=== PATIENT | female | born 2000 | race Caucasian/White ===

== ENCOUNTER 2021-10-01 09:17 | Observation (INO) | payer BC, SELFPAY ==
[2021-09-30 20:10] VITALS: PULSE 147; RESP 18; O2SAT 100
--- NOTE | 2021-09-30 20:10 | PC.NURSE ---
This patient, Tiffany Nicole, was admitted to Intensive Care Unit-8. Patient/family oriented to hospital policies and general routines including ID bracelet, bed and alarms, visiting hours, pain management, procedures, bathroom and other care routines, personal items, smoking policy, room service/diet, and visiting hours. Information on how to activate the Rapid Response Team has been discussed. Patient/Family are encouraged to report perceived risks to care and to ask questions if they do not understand what they are told or what they should do.
[2021-09-30 20:16] VITALS: BMI 22.6
--- NOTE | 2021-09-30 20:21 | ECG_ITS ---
Measurements Intervals [place] Rate: 143 P: 58 MO: 96 QRS: 77 QRSD: 94 T: -42 QT: 232 QTc: 359 Interpretive Statements NARROW QRS TACHYCARDIA MOST CONSISTENT WITH ATYPICAL ATRIAL FLUTTER NONSPECIFIC ST & T-WAVE ABNORMALITY WARNING: DATA QUALITY MAY AFFECT INTERPRETATION NO PREVIOUS ECG AVAILABLE FOR COMPARISON Electronically Signed On 10-01-2021 16:41:39 CDT by Maury Greer M.D.
[2021-09-30 20:41] LABS: Hematocrit 39.9 % (37.0-47.0); Hemoglobin 13.5 g/dL (12.0-15.0); Mean Corpuscular HGB Conc 33.8 g/dl (32-36); Mean Corpuscular Hemoglobin 29.5 pg (26-34); Mean Corpuscular Volume 87.1 fl (80-100); Mean Platelet Volume 10.7 fl (7.4-10.4); Platelet Count Result 266 k/mm3 (150-375); Red Blood Count 4.58 M/mm3 (4.2-5.4); Red Cell Distribution Width 14.1 % (11.5-14.5); White Blood Count 8.2 K/mm3 (4.5-10.0)
[2021-09-30 20:51] LABS: Alanine Aminotransferase 19 U/L (6-35); Albumin Level 5.1 g/dL (3.5-5.1); Alkaline Phosphatase 61 U/L (38-126); Anion Gap 14 mmol/L (8-16); Aspartate Amino Transferase 25 U/L (14-36); Bilirubin,Total 0.5 mg/dL (0.2-1.3); Blood Urea Nitrogen 8 mg/dL (7-17); Calcium 9.1 mg/dL (8.4-10.2); Carbon Dioxide 18 mmol/L (22-30); Chloride 111 mmol/L (98-107); Estimated CRCL calculation 121 ml/min; Estimated Glomerular Filt Rate > 60; Glucose 120 mg/dL (65-110); Magnesium 1.8 mg/dL (1.6-2.3); Potassium 3.5 mmol/L (3.4-5.0); Sodium 143 mmol/L (137-145)
[2021-09-30 20:53] LABS: Acetaminophen < 10 ug/mL (10-30); Salicylate < 1.0 mg/dL (2-20)
[2021-09-30 21:20] LABS: Band Neutrophils Percent 2 % (0-6); Lymphocytes Absolute Manual 0.65 K/mm3 (1.1-4.5); Monocytes Absolute Manual 0.08 K/mm3 (0.1-0.90); Monocytes Percent Manual 1 % (3-9); Neutrophils Absolute Manual 7.46 K/mm3 (1.7-7.2); Neutrophils Percent Manual 89 % (46-73); Platelet Estimate Adequate (Adequate); Total Cells Counted 100
--- NOTE | 2021-09-30 21:30 | PM.IMHP ---
H&P: HPI History of Present Illness Date/Time: 09/30/21 21:30 Chief Complaint: Intentional venlafaxine overdose. Narrative: This is a very pleasant 21-year-old female with depression who is being directly admitted to the ICU from an outside emergency department for close monitoring after an intentional venlafaxine overdose. She has a history of depression dating back to her teenage years and was previously hospitalized after attempting suicide by overdose approximately 7 years ago. Since that time she has been off and on antidepressants and over the last several months she has been trying to wean off of venlafaxine as she seemed to be doing better. Last month she had Nexplanon implanted and since that time she has become increasingly depressed with frequent crying spells. This morning she drank 2 bottles of wine starting at about 04:00 and around 11:00 she took 90 tablets of Effexor ER 75 mg. Not long thereafter she was remorseful and induced emesis however only vomited a small amount and she was brought into the ER for evaluation. In the emergency department she was tachycardic and her EKG showed a slightly prolonged QTC at 463. Poison Control was consulted and they recommended transfer to an ICU for close monitoring. Her potassium was on the low end of normal and they also recommended that be replaced to a goal potassium level of near 4.0. There were no recommendations for sodium bicarbonate. While in the emergency department she had intermittent episodes of scattered red patches, some slightly raised, on the face, neck, and trunk. She was given a dose of Solu-Medrol for possible allergic reaction though patient notes that this occasionally happens with emotions and they seem to come and go quite quickly. At the time my evaluation she is resting comfortably. She remains tachycardic in the 130s but reports that her palpitations have improved. She is not experiencing any nausea and in fact she is a bit hungry. She denies dizziness, tremors, headache, visual changes, abdominal pain, chest pain, wheezing, and shortness of breath. She is not actively suicidal and tells me that she never really felt like she wanted to , more over she feels as though sometime she would be better off if she was not around. She has no harmful thoughts at this time. Review of Systems Review of Systems: Twelve systems were reviewed. No recent cold or flu symptoms. Last menstrual period was in the middle of August however she has had pretty continuous spotting since Nexplanon was implanted. Except as documented, all other systems were reviewed and are negative. [facility] Past Medical History Medical History (Updated 10/01/21 @ 11:27 by Dm Fuentes MD) Anxiety Depression History of suicide attempt Surgical History Surgical History No history of previous surgery Family History Family History Other No pertinent family history Social History Social History (Updated 10/01/21 @ 11:37 by Dm Fuentes MD) Social History: Surrogate decision maker: Dinora Nicole, mother. Code status: Full code. 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 Spiritual care concerns: No Meds Home Medications and Allergies Home Medications Medication Instructions Recorded Confirmed Type No Home Medications 09/30/21 09/30/21 History Allergies Allergy/AdvReac Type Severity Reaction Status Date / Time Quinolones Allergy Anaphylaxis Verified 09/30/21 20:10 Exam Narrative: General: Well-developed female supine in bed. Weight: 65.6 kg. BMI: 22.7. HEENT:
[2021-09-30 21:39] VITALS: BP 125/74; PULSE 151; RESP 22; TEMP 37.7; O2SAT 100
[2021-09-30 22:00] VITALS: BP 126/75; PULSE 148; RESP 12; O2SAT 100
[2021-09-30] MEDS: POTASSIUM CHLORIDE 20 MEQ TABLET PO (22:47)
[2021-09-30] MEDS: LACTATED RINGERS 1,000 ML 100 ML IV CONT (22:49)
[2021-09-30 23:08] LABS: Amphetamine Screen Urine Negative (Negative); Barbiturate Screen Urine Negative (Negative); Benzodiazepines Screen Urine Negative (Negative); Cannabinoid Screen Urine Negative (Negative); Cocaine Screen Urine Negative (Negative); Methadone Screen Urine Negative (Negative); Opiate Screen Urine Negative (Negative); Phencyclidine Screen Urine Negative (Negative)
--- NOTE | 2021-09-30 23:17 | PC.NURSE ---
Received call from [place] at poison control. Updated on pertinent labs, ekg results, vitals and patient mental status. Recommends giving 1g magnesium and repeat bmp & ekg at 0100. Will call around 0300 for patient update. Updated Maryjane SCHAEFFER with plan of care and recommendations.
[2021-10-01] VITALS (12 sets, daily range): BP systolic 107–137; BP diastolic 64–94; PULSE 87–149; RESP 14–27; TEMP 36.3–37.1; O2SAT 99–100
[2021-10-01] MEDS: MAGNESIUM SULF 1 GM/D5W 100 ML 1 GM/100 ML BAG IVPB (00:39)
--- NOTE | 2021-10-01 01:00 | ECG_ITS ---
Measurements Intervals [place] Rate: 144 P: 64 [place]: 104 QRS: 68 QRSD: 85 T: -39 QT: 229 QTc: 355 Interpretive Statements NARROW QRS TACHYCARDIA MOST CONSISTENT WITH ATYPICAL ATRIAL FLUTTER. NONSPECIFIC ST & T-WAVE ABNORMALITY COMPARED TO ECG 09/30/2021 20:00:15 NO SIGNIFICANT CHANGES Electronically Signed On 10-01-2021 16:44:07 CDT by Maury Greer M.D.
[2021-10-01 01:50] LABS: Anion Gap 14 mmol/L (8-16); Blood Urea Nitrogen 9 mg/dL (7-17); Calcium 8.8 mg/dL (8.4-10.2); Carbon Dioxide 18 mmol/L (22-30); Chloride 109 mmol/L (98-107); Estimated CRCL calculation 142 ml/min; Estimated Glomerular Filt Rate > 60; Glucose 129 mg/dL (65-110); Magnesium 2.1 mg/dL (1.6-2.3); Potassium 3.9 mmol/L (3.4-5.0); Sodium 141 mmol/L (137-145)
--- NOTE | 2021-10-01 03:16 | PC.NURSE ---
Follow up call received from Madison at poison control. Updated on current labs, vitals, most recent EKG, and patient current mental status. Recommendation is to continue IV fluid hydration and to give low dose of benzodiazepine. This RN will place call to hospitalist service with recommendations from poison control.
[2021-10-01 05:33] LABS: Hematocrit 37.6 % (37.0-47.0); Hemoglobin 12.6 g/dL (12.0-15.0); Mean Corpuscular HGB Conc 33.5 g/dl (32-36); Mean Corpuscular Hemoglobin 29.3 pg (26-34); Mean Corpuscular Volume 87.4 fl (80-100); Mean Platelet Volume 10.5 fl (7.4-10.4); Platelet Count Result 278 k/mm3 (150-375); Red Cell Distribution Width 14.3 % (11.5-14.5); White Blood Count 10.2 K/mm3 (4.5-10.0)
[2021-10-01 05:42] LABS: Alanine Aminotransferase 14 U/L (6-35); Albumin Level 4.7 g/dL (3.5-5.1); Alkaline Phosphatase 54 U/L (38-126); Anion Gap 12 mmol/L (8-16); Aspartate Amino Transferase 23 U/L (14-36); Bilirubin,Total 0.6 mg/dL (0.2-1.3); Blood Urea Nitrogen 8 mg/dL (7-17); Calcium 8.9 mg/dL (8.4-10.2); Carbon Dioxide 17 mmol/L (22-30); Chloride 109 mmol/L (98-107); Estimated CRCL calculation 142 ml/min; Estimated Glomerular Filt Rate > 60; Glucose 123 mg/dL (65-110); Magnesium 2.2 mg/dL (1.6-2.3); Potassium 3.9 mmol/L (3.4-5.0); Sodium 138 mmol/L (137-145)
--- NOTE | 2021-10-01 08:00 | ECG_ITS ---
Measurements Intervals [place] Rate: 134 P: 57 [place]: 96 QRS: 68 QRSD: 85 T: 0 QT: 331 QTc: 495 Interpretive Statements SINUS TACHYCARDIA WITH SHORT [place] INTERVAL NONSPECIFIC ST & T-WAVE ABNORMALITY ABNORMAL RHYTHM ECG COMPARED TO ECG 10/01/2021 00:40:16 SINUS RHYTHM IS NOW CLEARLY PRESENT. Electronically Signed On 10-01-2021 16:45:28 CDT by Maury Greer M.D.
[2021-10-01] MEDS: POTASSIUM CHLORIDE 20 MEQ PACKET (FOR LIQUID) PO (09:55)
[2021-10-01] MEDS: LACTATED RINGERS 1,000 ML 100 ML IV CONT ×2 (09:56→22:03)
[2021-10-01] MEDS: THIAMINE HCL 100 MG TABLET PO (11:19)
[2021-10-01] MEDS: FOLIC ACID 1 MG TABLET PO (11:19)
--- NOTE | 2021-10-01 11:22 | WPDCNINT ---
Assessment and Plan Assessment and plan (1) Overdose of venlafaxine: Code(s): T43.211A - Poisoning by selective serotonin and norepinephrine reuptake inhibitors, accidental (unintentional), initial encounter Status: Acute Assessment and Plan: Clinically patient has been stable and is currently asymptomatic EKG does show slightly prolonged QTC at 495 and will be monitored by serial EKGs She is alert oriented x3 and mostly symptomatic Continue to monitor neurological status and for seizures Potassium replacement ordered Monitor and replace electrolytes as needed (2) Serotonin syndrome: Code(s): G25.79 - Other drug induced movement disorders Status: Acute Assessment and Plan: Patient does exhibit some mild signs of serotonin syndrome in the form of mild tremor per patient also admits that she feels anxious right now and regarding what will be the outcome of this event. Patient also drinks alcohol. She also has mydriasis I ordered p.r.n. Xanax but patient at this time does not want to take any benzodiazepine. I explained to her that it is available if she needs it. Continue IV fluids If symptoms or signs worsen will further escalate treatment at this time, will continue with supportive care (3) Suicide attempt: Code(s): T14.91XA - Suicide attempt, initial encounter Status: Acute Assessment and Plan: Patient has a 1 on 1 sitter at this time (4) Depression: Code(s): F32.A - Depression, unspecified Status: Acute Assessment and Plan: Patient will be evaluated by crisis management or psychiatry once she is medically stable for further planning for treatment of her depression which may include a going to inpatient psychiatry treatment (5) Anxiety: Code(s): F41.9 - Anxiety disorder, unspecified Status: Acute Assessment and Plan: Patient states that she does have anxiety does not want to take any medications for it I have ordered P.r.n. Xanax but patient at this time does not want to take it. 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 She has a history of depression dating back to her teenage years and was previously hospitalized after attempting suicide by overdose approximately 7 years ago. Since that time she has been off and on antidepressants. Patient states that her mood swings have become worse since she had but control Nexplanon implanted. She states that since that time she has become increasingly depressed with frequent crying spells. Yesterday morning she drank 2 bottles of wine starting at about 04:00 and around 11:00 she took 90 tablets of Effexor ER 75 mg. Not long thereafter she was remorseful and induced emesis however only vomited a small amount and she was brought into the ER for evaluation. In the emergency department she was tachycardic and her EKG showed a slightly prolonged QTC at 463. Poison Control was consulted and they recommended transfer to an ICU for close monitoring and supportive care This morning patient states that she is feeling better denies any specific complaints except headache. She does feel anxious about the eventual outcome of this event. She denies any chest pain shortness of breath blurre
--- NOTE | 2021-10-01 12:00 | ECG_ITS ---
Measurements Intervals [place] Rate: 120 P: 65 [place]: 123 QRS: 69 QRSD: 82 T: 34 QT: 307 QTc: 434 Interpretive Statements SINUS TACHYCARDIA NONSPECIFIC ST & T-WAVE ABNORMALITY ABNORMAL RHYTHM ECG COMPARED TO ECG 10/01/2021 07:54:41 NO SIGNIFICANT CHANGES Electronically Signed On 10-01-2021 16:51:51 CDT by Maury Greer M.D.
--- NOTE | 2021-10-01 16:00 | ECG_ITS ---
Measurements Intervals [place] Rate: 134 P: 66 [place]: 100 QRS: 79 QRSD: 82 T: 14 QT: 231 QTc: 345 Interpretive Statements SINUS TACHYCARDIA NONSPECIFIC ST & T-WAVE ABNORMALITY ABNORMAL RHYTHM ECG COMPARED TO ECG 10/01/2021 12:43:40 NO SIGNIFICANT CHANGES Electronically Signed On 10-01-2021 16:58:51 CDT by Maury Greer M.D.
--- NOTE | 2021-10-01 16:13 | PM.IMPN ---
Progress Note: A&P Assessment and Plan (1) Overdose of venlafaxine: Code(s): T43.211A - Poisoning by selective serotonin and norepinephrine reuptake inhibitors, accidental (unintentional), initial encounter Status: Acute Assessment and Plan: Patient took 90 tablets of Effexor ER 75 mg at around 11:00. Poison Control recommends monitoring on telemetry. QTC initially a bit prolonged at outside facility, now normal. Replace potassium to maintain a level of around 4.0. 10/01/2021 interval history: currently patient remains clinically stable has no no complaints her parents are in the room, discussed with assistant grocery patient has significant history of alcohol abuse, has tremor and a QT interval remains high will monitor patient overnight and possibly have crisis team evaluate the patient tomorrow, patient is suspected her depression symptoms worsen after CTA head Nexplanon implanted and patient would like have it removed, will consult Gynecology for further recommendation. will continue to monitor (2) Suicide gesture: Code(s): X83.8XXA - Intentional self-harm by other specified means, initial encounter Status: Acute Assessment and Plan: She is not actively suicidal and remorseful. Initiate suicide precautions; sitter will be in the room. Consult crisis once medically stable. (3) Depression: Code(s): F32.A - Depression, unspecified Status: Acute Assessment and Plan: Patient requests consult with [facility] in hopes of having Nexplanon removed KRISTINA. She will need close follow-up with her psychiatrist in [place]. (4) Anxiety: Code(s): F41.9 - Anxiety disorder, unspecified Status: Acute (5) Suicide attempt: Code(s): T14.91XA - Suicide attempt, initial encounter Status: Acute (6) Serotonin syndrome: Code(s): G25.79 - Other drug induced movement disorders Status: Acute (7) Alcohol abuse: Code(s): F10.10 - Alcohol abuse, uncomplicated Status: Acute Additional Plan DVT prophylaxis -SCDs Nutrition -regular diet Code Status - Full Code Subjective Date/time seen: 10/01/21 16:13 HPI:This is a very pleasant 21-year-old female with depression who is being directly admitted to the ICU from an outside emergency department for close monitoring after an intentional venlafaxine overdose. She has a history of depression dating back to her teenage years and was previously hospitalized after attempting suicide by overdose approximately 7 years ago. Since that time she has been off and on antidepressants and over the last several months she has been trying to wean off of venlafaxine as she seemed to be doing better. Last month she had Nexplanon implanted and since that time she has become increasingly depressed with frequent crying spells. This morning she drank 2 bottles of wine starting at about 04:00 and around 11:00 she took 90 tablets of Effexor ER 75 mg. Not long thereafter she was remorseful and induced emesis however only vomited a small amount and she was brought into the ER for evaluation. In the emergency department she was tachycardic and her EKG showed a slightly prolonged QTC at 463. Poison Control was consulted and they recommended transfer to an ICU for close monitoring. Her potassium was on the low end of normal and they also recommended that be replaced to a goal potassium level of near 4.0. There were no recommendations for sodium bicarbonate. While in the emergency department she had intermittent episodes of scattered red patches, some slightly raised, on the face, neck, and trunk. She was given a dose of Solu-Medrol for possible allergic reaction though patient notes that this occasionally happens with emotions and they seem to come and go quite quickly. At the time my evaluation she is resting comfortably. She remains tachycardic in the 130s but reports that her palpitations have improved. She is not experiencing a
[2021-10-02] VITALS (10 sets, daily range): BP systolic 111–127; BP diastolic 72–94; PULSE 65–117; RESP 12–20; TEMP 36.2–37.1; O2SAT 99–100
--- NOTE | 2021-10-02 08:00 | ECG_ITS ---
Measurements Intervals [place] Rate: 83 P: 62 [place]: 123 QRS: 67 QRSD: 85 T: 39 QT: 357 QTc: 421 Interpretive Statements SINUS RHYTHM NORMAL ECG COMPARED TO ECG 10/01/2021 16:17:35 PATIENT IS NO LONGER TACHYCARDIC, MILD ST AND T ABNORMALITY IS RESOLVED Electronically Signed On 10-03-2021 7:01:28 CDT by Maury Greer M.D.
[2021-10-02] MEDS: FOLIC ACID 1 MG TABLET PO (08:06)
[2021-10-02] MEDS: THIAMINE HCL 100 MG TABLET PO (08:06)
--- NOTE | 2021-10-02 08:40 | WPDINTPN ---
Progress Note: A&P Assessment and Plan (1) Overdose of venlafaxine: Code(s): T43.211A - Poisoning by selective serotonin and norepinephrine reuptake inhibitors, accidental (unintentional), initial encounter Status: Acute Assessment and Plan: Clinically patient has been stable and is currently asymptomatic Initial EKG did show slightly prolonged QTC but last 3 EKGs have shown normal QTC interval She is alert oriented x3 and mostly asymptomatic Continue to monitor neurological status and for seizures Patient received potassium replacement yesterday. Check BMP and Mag this morning Monitor and replace electrolytes as needed (2) Serotonin syndrome: Code(s): G25.79 - Other drug induced movement disorders Status: Acute Assessment and Plan: Patient was exhibiting some mild signs of serotonin syndrome in the form of mild tremor yesterday but patient alsoo admits that she feels anxious right now and regarding what will be the outcome of this event. Patient also drinks alcohol. She also had mydriasis I ordered p.r.n. Xanax but patient at this time does not want to take any benzodiazepine. I explained to her that it is available if she needs it. Tachycardia has resolved, tremors have resolved but she still have med reassess Will discontinue IV fluids Continue monitor at this time Continue with supportive care (3) Suicide attempt: Code(s): T14.91XA - Suicide attempt, initial encounter Status: Acute Assessment and Plan: Patient has a 1 on 1 sitter at this time (4) Depression: Code(s): F32.A - Depression, unspecified Status: Acute Assessment and Plan: Patient will be evaluated by crisis management or psychiatry once she is medically stable for further planning for treatment of her depression which may include a going to inpatient psychiatry treatment (5) Anxiety: Code(s): F41.9 - Anxiety disorder, unspecified Status: Acute Assessment and Plan: Patient states that she does have anxiety does not want to take any medications for it I have ordered P.r.n. Xanax but patient at this time does not want to take it. (6) Alcohol abuse: Code(s): F10.10 - Alcohol abuse, uncomplicated Status: Acute Assessment and Plan: Patient was counseled to quit alcohol as it may be worsening her depression Thiamine and folic acid ordered Monitor for signs of withdrawal Plan Internal medicine physician consulted OBGYN for removal of her control implant but we were told that it is only done as an outpatient in the office. Patient notified to set up an appointment with her accounts payable payroll coordinator physician post discharge Additional Plan DVT prophylaxis -SCDs Nutrition -regular diet Code Status - Full Code Incentive spirometry Transfer out of ICU today Subjective Date/time seen: 10/02/21 08:40 Overnight events reviewed. Afebrile Patient slept well overnight and denies any new complaints. On review her vital signs heart rate has improved She states that her pupils are still dilated more than usual. All other systems were reviewed and were negative Review of Systems Review of Systems: All systems reviewed & are unremarkable except as noted in HPI and below (Subjective) Exam Narrative: General: Pt is alert awake and in NAD Lungs/Chest: Trachea central Clear BS B/L, No crackles or wheezing. Cardiac: RRR. Normal S1 S2. No murmurs Circulation: Pedal pulses are intact and symmetrical. Abdomen: Normal bowel sounds.. Soft. NT. ND. Extremities: No clubbing, cyanosis or edema. Warm : Valles in place Neurologic: Follows commands. Moves all 4 extremities PERRL AO x3, no tremor in hands on exam today, mydriasis still present Skin: No Rash Objective Data Vital Signs Vital Signs: Vital Signs - 24 hr 10/01/21 10:00 10/01/21 10:00 10/01/21 12:00 Temperature 36.8 C 36.5 C Pulse Rate 140 H 141 H 122 H Respiratory Rate 20 15 Blood Pressure 129/88 127/88
[2021-10-02 09:15] LABS: Anion Gap 7 mmol/L (8-16); Blood Urea Nitrogen 8 mg/dL (7-17); Calcium 8.7 mg/dL (8.4-10.2); Carbon Dioxide 25 mmol/L (22-30); Chloride 106 mmol/L (98-107); Estimated CRCL calculation 121 ml/min; Estimated Glomerular Filt Rate > 60; Glucose 88 mg/dL (65-110); Potassium 3.6 mmol/L (3.4-5.0); Sodium 138 mmol/L (137-145)
[2021-10-02] MEDS: POTASSIUM CHLORIDE 20 MEQ TABLET 40 MEQ PO (11:03)
--- NOTE | 2021-10-02 14:32 | PC.NURSE ---
Spoke to Art with [place] poison control at 1430. Update on patient condition, and last set of vitals. Poison control to sign off on patient case.
--- NOTE | 2021-10-02 15:20 | W.PM.PROC2 ---
Procedure Note - Detailed Date of Procedure 10/02/21 Pre-op Diagnosis Suicide attempt, venlafaxine overdose, Nexplanon contraception Post-op Diagnosis Same Procedure Performed Nexplanon removal Surgeon Mehdi Gibbs MD Anesthesia Local Indications Suicide attempt Findings Nexplanon in the left arm in the proximal ulnar area. Description of Procedure Skin was clean with Betadine the area of the Nexplanon left arm. The area was injected with lidocaine. Scalpel used to make an incision at the distal end of the Nexplanon. Nexplanon in was pushed towards the incision site. The scalp was used to cut down on the Nexplanon. The capsule was incised and the Nexplanon was expressed from the incision site. Grafts and taken away. The skin was then closed with glue. Estimated Blood Loss 2 Urine Output 400 Pathology None sent Complications No immediate complications Condition Stable Disposition No change
--- NOTE | 2021-10-02 15:24 | WPDCN ---
Assessment and Plan Assessment and plan (1) Contraception management: Code(s): Z30.9 - Encounter for contraceptive management, unspecified Status: Acute (2) Suicide attempt: Code(s): T14.91XA - Suicide attempt, initial encounter Status: Acute (3) Depression: Code(s): F32.A - Depression, unspecified Status: Acute Plan Patient is a 21-year-old female with Nexplanon who requires removal. She a suicide attempt and was in the ICU. Nexplanon was removed without complications. See the procedure note. She tolerated well. Will sign off. HPI Data of Consult Date/Time: 10/02/21 15:24 Requesting Physician: Xavier Segundo MD Primary Care Provider: Jocelyne Saenz MD Consult Narrative Narrative: Tiffany Nicole is a 21 year old female who attempted suicide in was brought to emergency department. She is being observed in the ICU. Patient reports increased depression with Nexplanon insertion. May have contributed to the severity of her disease. Patient would like the Nexplanon removed. She denies any abnormal vaginal bleeding. She denies any nausea, vomiting, fever, chills. She denies any chest pain shortness of breath. Review of Systems Review of Systems: All systems reviewed & are unremarkable except as noted in HPI and below Constitutional: Constitutional: Denies chills, Denies fatigue, Denies fever(s) and Denies weakness Eyes: Eyes: Denies blurry vision, Denies change in vision, Denies loss of peripheral vision, Denies loss of vision, Denies other visual disturbances and Denies eye pain ENT: Denies vertigo, Denies dizziness, Denies hearing loss, Denies mouth pain, Denies nasal obstruction, Denies neck mass and Denies neck pain Cardiovascular: Cardiovascular: Denies chest pain, Denies diaphoresis, Denies syncope, Denies leg edema and Denies dyspnea Respiratory: Respiratory: Denies chest congestion, Denies cough, Denies hemoptysis, Denies dyspnea and Denies wheezing Gastrointestinal: Gastrointestinal: Denies abdominal pain, Denies constipation, Denies diarrhea, Denies nausea and Denies vomiting Genitourinary: Genitourinary: Denies hematuria, Denies change in libido, Denies nocturia, Denies genital lesions, Denies flank pain and Denies urinary urgency Musculoskeletal: Musculoskeletal: Denies abnormal gait, Denies back pain, Denies myalgias, Denies arthralgias, Denies joint swelling, Denies muscle weakness and Denies neck pain Integumentary/Breasts: Skin/Breast: Denies swelling, Denies breast pain, Denies breast mass, Denies dry skin, Denies nipple discharge, Denies unusual bruising and Denies jaundice Neurologic: Denies Neuro-related abnormal movements, Denies Abnormal speech present, Denies abnormal gait, Denies behavioral changes, Denies confusion, Denies vertigo, Denies dizziness, Denies syncope, Denies loss of vision, Denies memory loss, Denies convulsions and Denies weakness Psychiatric: Psychiatric: Denies abnormal sleep pattern, Denies behavioral changes, Denies change in libido, Denies confusion, Denies depression, Denies anhedonia and Denies memory loss Endocrine: Endocrine: Reports no additional endocrine complaints, Denies change in libido and Denies fatigue Hematologic/Lymphatic: Hematologic/Lymphatic: Reports no additional hematologic/lymphatic complaints Allergic/Immunologic: Allergic/Immunologic: Reports no additional allergic/immunologic complaints and Denies wheezing PMFSH Past Medical History Medical History (Updated 10/02/21 @ 15:26 by Mehdi Gibbs MD) Anxiety Depression History of suicide attempt Surgical History Surgical History No history of previous surgery Family History Family History Other No pertinent family history Social History Social History (Updated 10/01/21 @ 11:37 by Dm Fuentes MD) Social History: Surrogate decision
--- NOTE | 2021-10-02 15:31 | PM.IMPN ---
Progress Note: A&P Assessment and Plan (1) Overdose of venlafaxine: Code(s): T43.211A - Poisoning by selective serotonin and norepinephrine reuptake inhibitors, accidental (unintentional), initial encounter Status: Acute Assessment and Plan: Patient took 90 tablets of Effexor ER 75 mg at around 11:00. Poison Control recommends monitoring on telemetry. QTC initially a bit prolonged at outside facility, now normal. Replace potassium to maintain a level of around 4.0. 10/01/2021 interval history: currently patient remains clinically stable has no no complaints her parents are in the room, discussed with automobile spring repairer patient has significant history of alcohol abuse, has tremor and a QT interval remains high will monitor patient overnight and possibly have crisis team evaluate the patient tomorrow, patient is suspected her depression symptoms worsen after CTA head Nexplanon implanted and patient would like have it removed, will consult Gynecology for further recommendation. will continue to monitor 10/02/2021 interval history: currently patient remains clinically stable has no no complaints her family in the room, discussed with automobile spring repairer patient has significant history of alcohol abuse, has tremor and a QT interval remains high which is improving, however patient continued to have dilated pupil and automobile spring repairer suspect secondary to overdose of effoxor, will monitor patient overnight and possibly have crisis team evaluate the patient tomorrow, patient suspected her depression symptoms worsen after she had Nexplanon implanted and patient would like have it removed, consulted Gynecology for further recommendation unable to remove while in the hospital patient her to follow as outpatient. patient remains clinically stable will transfer patient out of ICU to [facility], will continue to monitor (2) Suicide gesture: Code(s): X83.8XXA - Intentional self-harm by other specified means, initial encounter Status: Acute Assessment and Plan: She is not actively suicidal and remorseful. Initiate suicide precautions; sitter will be in the room. Consult crisis once medically stable. (3) Depression: Code(s): F32.A - Depression, unspecified Status: Acute Assessment and Plan: Patient requests consult with [facility] in hopes of having Nexplanon removed KRISTINA. She will need close follow-up with her psychiatrist in [place]. (4) Anxiety: Code(s): F41.9 - Anxiety disorder, unspecified Status: Acute (5) Suicide attempt: Code(s): T14.91XA - Suicide attempt, initial encounter Status: Acute (6) Serotonin syndrome: Code(s): G25.79 - Other drug induced movement disorders Status: Acute (7) Alcohol abuse: Code(s): F10.10 - Alcohol abuse, uncomplicated Status: Acute Additional Plan DVT prophylaxis -SCDs Nutrition -regular diet Code Status - Full Code Subjective Date/time seen: 10/02/21 15:31 10/02/2021 interval history: currently patient remains clinically stable has no no complaints her family in the room, discussed with automobile spring repairer patient has significant history of alcohol abuse, has tremor and a QT interval remains high which is improving, however patient continued to have dilated pupil and automobile spring repairer suspect secondary to overdose of effoxor, will monitor patient overnight and possibly have crisis team evaluate the patient tomorrow, patient suspected her depression symptoms worsen after she had Nexplanon implanted and patient would like have it removed, consulted Gynecology for further recommendation unable to remove while in the hospital patient her to follow as outpatient. patient remains clinically stable will transfer patient out of ICU to med surg, will continue to monitor Review of Systems Review of Systems: All systems reviewed & are unremarkable except as noted in HPI and below (Subjective) Exam Narrative:
[2021-10-03] VITALS: BP 112/77; PULSE 62; RESP 26; O2SAT 98
[2021-10-03 04:00] VITALS: BP 103/62; PULSE 73; RESP 12; TEMP 36.6; O2SAT 98
[2021-10-03 08:00] VITALS: BP 127/78; PULSE 85; PULSE 95; RESP 15; TEMP 36.8; O2SAT 99
[2021-10-03] MEDS: FOLIC ACID 1 MG TABLET PO (08:43)
[2021-10-03] MEDS: THIAMINE HCL 100 MG TABLET PO (08:44)
--- NOTE | 2021-10-03 11:28 | PM.IMPN ---
Progress Note: A&P Assessment and Plan (1) Overdose of venlafaxine: Code(s): T43.211A - Poisoning by selective serotonin and norepinephrine reuptake inhibitors, accidental (unintentional), initial encounter Status: Acute Assessment and Plan: Patient took 90 tablets of Effexor ER 75 mg at around 11:00. Poison Control recommends monitoring on telemetry. QTC initially a bit prolonged at outside facility, now normal. Replace potassium to maintain a level of around 4.0. 10/01/2021 interval history: currently patient remains clinically stable has no no complaints her parents are in the room, discussed with precision agronomist patient has significant history of alcohol abuse, has tremor and a QT interval remains high will monitor patient overnight and possibly have crisis team evaluate the patient tomorrow, patient is suspected her depression symptoms worsen after CTA head Nexplanon implanted and patient would like have it removed, will consult Gynecology for further recommendation. will continue to monitor 10/02/2021 interval history: currently patient remains clinically stable has no no complaints her family in the room, discussed with precision agronomist patient has significant history of alcohol abuse, has tremor and a QT interval remains high which is improving, however patient continued to have dilated pupil and precision agronomist suspect secondary to overdose of effoxor, will monitor patient overnight and possibly have crisis team evaluate the patient tomorrow, patient suspected her depression symptoms worsen after she had Nexplanon implanted and patient would like have it removed, consulted Gynecology for further recommendation unable to remove while in the hospital patient her to follow as outpatient. patient remains clinically stable will transfer patient out of ICU to med surg, will continue to monitor 10/03/2021 interval history: currently patient remains clinically stable has no no complaints her family in the room, discussed with precision agronomist patient has significant history of alcohol abuse, has tremor and a QT interval remains high which is improving, however patient continued to have dilated pupil and precision agronomist suspect secondary to overdose of effoxor, today her clinical symptoms have improved and discussed with precision agronomist, will have crisis team evaluate the patient today as patient medically clear to discharge to inpatient psychiatric syed if needed, patient suspected her depression symptoms worsen after she had Nexplanon implanted and patient would like have it removed, consulted Gynecology for further recommendation unable to remove while in the hospital patient her to follow as outpatient. patient remains clinically stable will transfer patient out of ICU to med surg, will continue to monitor (2) Suicide gesture: Code(s): X83.8XXA - Intentional self-harm by other specified means, initial encounter Status: Acute Assessment and Plan: She is not actively suicidal and remorseful. Initiate suicide precautions; sitter will be in the room. Consult crisis once medically stable. (3) Depression: Code(s): F32.A - Depression, unspecified Status: Acute Assessment and Plan: Patient requests consult with [facility] in hopes of having Nexplanon removed KRISTINA. She will need close follow-up with her psychiatrist in [place]. (4) Anxiety: Code(s): F41.9 - Anxiety disorder, unspecified Status: Acute (5) Suicide attempt: Code(s): T14.91XA - Suicide attempt, initial encounter Status: Acute (6) Serotonin syndrome: Code(s): G25.79 - Other drug induced movement disorders Status: Acute (7) Alcohol abuse: Code(s): F10.10 - Alcohol abuse, uncomplicated Status: Acute Additional Plan DVT prophylaxis -SCDs Nutrition -regular diet Code Status - Full Code Subjective Date/time seen: 10/03/21 11:28 10/03/2021 interval history: gini
--- NOTE | 2021-10-03 15:15 | PM.DS ---
DS: Admitting Diagnosis Discharge Date 10/03/2021 Admitting Diagnosis Intentional venlafaxine overdose. DS: Discharge Diagnosis Discharge Diagnosis (1) Overdose of venlafaxine: Code(s): T43.211A - Poisoning by selective serotonin and norepinephrine reuptake inhibitors, accidental (unintentional), initial encounter Status: Acute Assessment and Plan: Patient took 90 tablets of Effexor ER 75 mg at around 11:00. Poison Control recommends monitoring on telemetry. QTC initially a bit prolonged at outside facility, now normal. Replace potassium to maintain a level of around 4.0. 10/01/2021 interval history: currently patient remains clinically stable has no no complaints her parents are in the room, discussed with assistant men's lacrosse coach patient has significant history of alcohol abuse, has tremor and a QT interval remains high will monitor patient overnight and possibly have crisis team evaluate the patient tomorrow, patient is suspected her depression symptoms worsen after CTA head Nexplanon implanted and patient would like have it removed, will consult Gynecology for further recommendation. will continue to monitor 10/02/2021 interval history: currently patient remains clinically stable has no no complaints her family in the room, discussed with assistant men's lacrosse coach patient has significant history of alcohol abuse, has tremor and a QT interval remains high which is improving, however patient continued to have dilated pupil and assistant men's lacrosse coach suspect secondary to overdose of effoxor, will monitor patient overnight and possibly have crisis team evaluate the patient tomorrow, patient suspected her depression symptoms worsen after she had Nexplanon implanted and patient would like have it removed, consulted Gynecology for further recommendation unable to remove while in the hospital patient her to follow as outpatient. patient remains clinically stable will transfer patient out of ICU to [facility], will continue to monitor 10/03/2021 interval history: currently patient remains clinically stable has no no complaints her family in the room, discussed with assistant men's lacrosse coach patient has significant history of alcohol abuse, has tremor and a QT interval remains high which is improving, however patient continued to have dilated pupil and assistant men's lacrosse coach suspect secondary to overdose of effoxor, today her clinical symptoms have improved and discussed with assistant men's lacrosse coach, will have crisis team evaluate the patient today as patient medically clear to discharge to inpatient psychiatric syed if needed, patient suspected her depression symptoms worsen after she had Nexplanon implanted and patient would like have it removed, consulted Gynecology for further recommendation unable to remove while in the hospital patient her to follow as outpatient. patient remains clinically stable will transfer patient out of ICU to med surg, will continue to monitor (2) Suicide gesture: Code(s): X83.8XXA - Intentional self-harm by other specified means, initial encounter Status: Acute Assessment and Plan: She is not actively suicidal and remorseful. Initiate suicide precautions; sitter will be in the room. Consult crisis once medically stable. (3) Depression: Code(s): F32.A - Depression, unspecified Status: Acute Assessment and Plan: Patient requests consult with [facility] in hopes of having Nexplanon removed KRISTINA. She will need close follow-up with her psychiatrist in [place]. (4) Anxiety: Code(s): F41.9 - Anxiety disorder, unspecified Status: Acute (5) Suicide attempt: Code(s): T14.91XA - Suicide attempt, initial encounter Status: Acute (6) Serotonin syndrome: Code(s): G25.79 - Other drug induced movement disorders Status: Acute (7) Alcohol abuse: Code(s): F10.10 - Alcohol abuse, uncomplicated Status: Acute DS: Summary Hospital Course Reason for hospitalization: Thi
== END 2021-10-03 15:53 | disposition home or self-care (01) ==
PROVIDERS: Internal Medicine; Physician Assistant; Admitting Provider Family Medicine; PCP Pediatrics; Visit Provider Family Medicine
DX: T43.212A Poisoning by selective serotonin and norepinephrine reuptake inhibitors, intentional self-harm, initial encounter (principal); G25.79 Other drug induced movement disorders; H57.04 Mydriasis; F32.A Depression, unspecified; F41.9 Anxiety disorder, unspecified; F10.10 Alcohol abuse, uncomplicated; Z91.51 Personal history of suicidal behavior; F12.90 Cannabis use, unspecified, uncomplicated; Z30.49 Encounter for surveillance of other contraceptives
CPT/HCPCS: 11982; 36415; 80048; 80053; 80307; 83735; 84443; 85025; 85027; 93005; 96361; 96365; A9270; G0378; J3475; J7120

== ENCOUNTER → 2021-11-24 11:49 | Outpatient (CLI) | payer BC, SELFPAY ==
--- NOTE | ~2021-11-24 | US_ITS ---
EXAMINATION: US renal BI DATE: 11/24/2021 12:18 INDICATION: Recurrent urinary tract infections TECHNIQUE: Multiple grayscale and Doppler ultrasound images of the kidneys were obtained. COMPARISON: None. FINDINGS: The right kidney measures 9.3 x 3.1 x 4.6 cm. The left kidney measures 9.7 x 5.1 x 5.1 cm. The kidneys demonstrate normal parenchymal echogenicity. There is no hydronephrosis. The bladder is n ormal. IMPRESSION: 1. Normal kidneys without hydronephrosis. Reviewed, dictated and finalized at location A.
== END ==
PROVIDERS: PCP Nurse Practitioner; Visit Provider Nurse Practitioner
DX: N39.0 Urinary tract infection, site not specified (principal)
CPT/HCPCS: 76775

== ENCOUNTER 2022-08-24 08:27 | Emergency (ER) | payer BC, SELFPAY ==
[2022-08-24 08:44] VITALS: BP 118/81; PULSE 74; RESP 16; TEMP 36.6; O2SAT 100
--- NOTE | 2022-08-24 08:58 | ED.URI ---
HPI - URI/Sore Throat General Chief Complaint: Upper Respiratory Infection Stated Complaint: Congestion/Ear Problem Time Seen by Provider: 08/24/22 08:58 Source: patient Mode of arrival: ambulatory Limitations: no limitations History of Present Illness HPI Narrative: 21-year-old female presents with complaint of nasal congestion, mild sinus pressure for the last 3 days. Reports sore throat 4 days ago but resolved. Afebrile. Reports that her work wants her checked for COVID. Denies chest pain and shortness of breath. No nausea vomiting diarrhea. Not taking any [id number] medications to treat her symptoms. All systems reviewed and negative except as noted above. Related Data Home Medications Medication Instructions Recorded Confirmed drospirenone (contraceptive) 4 mg 4 mg PO DAILY 08/24/22 08/24/22 (28) tablet (Slynd) fluoxetine 40 mg capsule 40 mg PO DAILY 08/24/22 08/24/22 prazosin 1 mg capsule 1 mg PO DAILY 08/24/22 08/24/22 Allergies Allergy/AdvReac Type Severity Reaction Status Date / Time Quinolones Allergy Severe Anaphylaxis Verified 08/24/22 09:00 Review of Systems Review of Systems: CONSTITUTIONAL: Denies fever, chills, or sweats. EYES: Denies visual changes, redness, or discharge. ENT: Reports rhinorrhea, congestion, sore throat. Denies otalgia. CARDIOVASCULAR: Denies chest pain, palpitations, or edema. RESPIRATORY: Denies cough or dyspnea. GASTROINTESTINAL: Denies abdominal pain, nausea, vomiting, or diarrhea. GENITOURINARY: Denies dysuria or hematuria. SKIN: Denies rash or itching. MUSCULOSKELETAL: Denies back pain, joint pain, or myalgia. NEUROLOGIC: Denies headache, numbness, or weakness. PSYCHIATRIC: Denies anxiety or depression. All other systems reviewed are negative, except as documented in HPI. [facility] Past Medical History Medical History (Updated 08/24/22 @ 09:23 by Evangelina Mcclelland NP) Anxiety Depression History of suicide attempt Surgical History Surgical History No history of previous surgery Family History Family History Other No pertinent family history Social History Social History (Updated 10/01/21 @ 11:37 by Dm Fuentes MD) Social History: Surrogate decision maker: Dinora Nicole, mother. Code status: Full code. 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 Spiritual care concerns: No Comments At time of signature, agree with nursing past medical, surgical, social and family history. There is no relevant family history pertinent to the presenting complaint. Exam Narrative: GENERAL: This is a well-nourished, well-developed patient, in no apparent distress. HEAD: normocephalic, atraumatic. EYES: PERRL. Sclera clear/white. Vision is grossly intact. EARS: External ears normal, auditory canals clear and without drainage, TMs normal without perforation. Hearing grossly intact. NOSE: External nose normal with clear nasal drainage, moderate congestion, erythema and swelling both nares. THROAT: Mucous membranes moist, clear postnasal drainage mild erythema. NECK: Neck supple, non-tender without lymphadenopathy, masses or thyromegaly. CARDIOVASCULAR: Regular rate and rhythm without murmurs, gallops, or rubs. RESPIRATORY: Clear to auscultation. Breath sounds equal bilaterally. No wheezes, rales, or rhonchi. SKIN: warm, Dry, intact with no suspicious lesions or rash, good texture and turgor. NEURO: awake, alert, and oriented to person, place and time. There were no obvious focal neurologic abnormalities. EXTREMITIES: No joint tenderness, effusion,
== END 2022-08-24 09:25 | disposition home or self-care (01) ==
PROVIDERS: Emergency Provider Nurse Practitioner Family
DX: J01.90 Acute sinusitis, unspecified (principal); Z20.822 Contact with and (suspected) exposure to COVID-19; F41.9 Anxiety disorder, unspecified; F32.A Depression, unspecified
CPT/HCPCS: 87426; 99213; C9803; G0463